=== PATIENT | male | born 1965 | race Asian ===

== ENCOUNTER 2019-01-20 00:01 | Emergency (ER) | payer OTHER, SELFPAY ==
[~2019-01-20] VITALS: Ht 165.1 cm; Wt 63.6 kg
[~2019-01-20 00:01] MED LIST: ATEN50TA PO; LISI-661 PO; METF-960 PO; PRED10TA3 PO; SIMV-260 PO
[2019-01-20 00:24] LABS: BASOPHILS % (AUTO) 0.3 % (0.0-2.0); EOSINOPHILS % (AUTO) 1.4 % (1.0-6.0); HEMATOCRIT 43.2 % (41-53); HEMOGLOBIN 14.6 g/dL (13.5-17.5); LYMPHOCYTES # (AUTO) 0.7 K/uL (1.0-4.8); LYMPHOCYTES % (AUTO) 14.4 % (22.0-44.0); MEAN CORPUSCULAR HGB CONC 33.9 G/dL (31.0-37.0); MEAN CORPUSCULAR VOLUME 92 fL (80-100); MONOCYTES # (AUTO) 0.1 K/uL (0.1-1.0); MONOCYTES % (AUTO) 2.5 % (2.0-9.0); NEUTROPHILS # (AUTO) 3.9 K/uL (1.8-7.7); NEUTROPHILS % (AUTO) 81.4 % (40.0-70.0); PLATELET COUNT (AUTO) 221 K/uL (150-450); RED BLOOD CELL COUNT(AUTO) 4.72 MIL/uL (4.50-5.90); RED CELL DISTRIBUTION WIDTH 12.5 % (11.5-14.5)
[2019-01-20] MEDS ORDERED: SODIUM CHLORIDE 0.9% 1,000 ML IV ONE ×2 (00:30→02:00)
[2019-01-20 00:42] LABS: ANION GAP 8 mmol/L (8-16); CALCIUM, TOTAL 8.4 mg/dL (8.8-10.5); CARBON DIOXIDE 27 mmol/L (22-29); CHLORIDE 100 mmol/L (98-107); CREATININE 1.74 mg/dL (0.60-1.30); GLOMERULAR FILTR. RATE CALC 41 mL/min (>60); GLUCOSE,RANDOM 226 mg/dL (70-110); SODIUM SERUM 135 mmol/L (136-145); UREA NITROGEN, BLOOD 15 mg/dL (7-18)
[2019-01-20] MEDS ORDERED: METH2.5T6 PO (00:43)
[2019-01-20] MEDS ORDERED: TERA2CAP10 PO (00:43)
[2019-01-20] MEDS ORDERED: ATOR20TA65 PO (00:43)
[2019-01-20] MEDS ORDERED: [UNRECOGNIZED DRUG - CODE] TP (00:43)
[2019-01-20] MEDS ORDERED: SALS500T16 PO (00:43)
[2019-01-20] MEDS ORDERED: FAMO20 PO (00:43)
[2019-01-20] MEDS ORDERED: HYDR-4061 PO (00:43)
[2019-01-20] MEDS ORDERED: CALC100O TP (00:44)
[2019-01-20 00:45] LABS: B-TYPE NATRIURETIC PEPTIDE 5 pg/mL (0-100)
[2019-01-20 00:47] LABS: ALANINE AMINOTRANSFERASE 57 U/L (12-78); ALKALINE PHOSPHATASE 56 U/L (46-116); ASPARTATE AMINOTRANSFERASE 17 U/L (15-37); BILIRUBIN,TOTAL 0.7 mg/dL (0.1-1.0); TOTAL PROTEIN, SERUM 6.6 g/dL (6.4-8.2)
[2019-01-20 00:49] LABS: GLUCOSE,POINT OF CARE 184 MG/DL (70-110)
[2019-01-20 04:58] VITALS: BP 82/44
== END 2019-01-20 05:29 | disposition short-term general hospital (02) ==
LOC: EMS 00:03
DX: R07.89 Other chest pain (principal); E86.0 Dehydration; T45.1X5A Adverse effect of antineoplastic and immunosuppressive drugs, initial encounter; K12.1 Other forms of stomatitis; K12.30 Oral mucositis (ulcerative), unspecified; N17.9 Acute kidney failure, unspecified; E11.9 Type 2 diabetes mellitus without complications; E78.00 Pure hypercholesterolemia, unspecified; I10 Essential (primary) hypertension; Z79.899 Other long term (current) drug therapy; Y92.89 Other specified places as the place of occurrence of the external cause
CPT/HCPCS: 36415; 71045; 80053; 82962; 83880; 84484; 85025; 93005; 96360; 96361; 99291; G0480; J7030

== ENCOUNTER 2022-08-05 09:34 | Emergency (ER) | payer MEDICAID, OTHER ==
[~2022-08-05] VITALS: Ht 167.6 cm; Wt 61.4 kg
[~2022-08-05 09:34] MED LIST changes: -ATEN50TA PO; +ATOR20TA65 PO; +CALC100O TP; +FAMO20 PO; +HYDR-4061 PO; -LISI-661 PO; +LISI-893 PO; +METF-1211 PO; -METF-960 PO; +METH2.5T6 PO; -PRED10TA3 PO; +SALS500T16 PO; -SIMV-260 PO; +TERA2CAP10 PO; +[UNRECOGNIZED DRUG - CODE] TP
[2022-08-05 09:52] VITALS: BP 153/82
== END 2022-08-05 10:58 | disposition home or self-care (01) ==
LOC: EMS 09:40
DX: S00.11XA Contusion of right eyelid and periocular area, initial encounter (principal); S10.91XA Abrasion of unspecified part of neck, initial encounter; M79.18 Myalgia, other site; E11.9 Type 2 diabetes mellitus without complications; E78.00 Pure hypercholesterolemia, unspecified; I10 Essential (primary) hypertension; Y09 Assault by unspecified means; Y93.89 Activity, other specified; Y92.89 Other specified places as the place of occurrence of the external cause; Y99.8 Other external cause status
CPT/HCPCS: 99281; Z7502